=== PATIENT | female | born 1965 | race Caucasian/White ===

== ENCOUNTER 2016-12-01 11:40 | Emergency (ER) | payer OTHER ==
[2016-12-01 12:30] VITALS: RESP 18
[2016-12-01] MEDS ORDERED: SODIUM CHLORIDE 0.9% 1,000 ML IV STA ×2 (12:44)
[2016-12-01 13:09] LABS: Basophils # (A) 0.1 k/uL (0-0.2); Basophils % (A) 1 %; CH 30.2; CHCM 34.1; Eosinophils # (A) 0.2 k/uL (0-0.7); Eosinophils % (A) 3 %; HCT 44.2 % (34.0-46.0); HDW 2.54; HGB 14.9 gm/dL (11.4-16.0); Luc # (Auto) 0.09; Luc % (Auto) 1; Lymphocytes # (A) 1.6 k/uL (1.0-4.8); Lymphocytes % (A) 26 %; MCH 29.9 pg (25.0-35.0); MCHC 33.7 g/dL (31.0-37.0); MCV 88.8 fL (80.0-100.0); Mean Platelet Volume 8.1; Monocytes # (A) 0.2 k/uL (0-1.0); Monocytes % (A) 4 %; Neutrophils # (A) 4.1 k/uL (1.3-7.7); Neutrophils % (A) 65 %; RBC 4.98 m/uL (3.80-5.40); RDW 13.1 % (11.5-15.5); WBC 6.2 k/uL (3.8-10.6); WBC (Perox) 6.09
[2016-12-01 13:22] LABS: ALT 50 U/L (9-52); AST 26 U/L (14-36); Alkaline Phosphatase 117 U/L (38-126); Amylase 69 U/L (30-110); Anion Gap 8 mmol/L; Blood Urea Nitrogen 11 mg/dL (7-17); Calcium 8.9 mg/dL (8.4-10.2); Carbon Dioxide 27 mmol/L (22-30); Chloride 104 mmol/L (98-107); Glucose 91 mg/dL (74-99); Non-African American GFR(MDRD) >60 (>60 ml/min/1.73 sqM); Sodium 139 mmol/L (137-145); Total Bilirubin 0.6 mg/dL (0.2-1.3); Total Protein 7.9 g/dL (6.3-8.2)
--- NOTE | 2016-12-01 13:39 | ED ---
General Adult HPI - General Chief complaint: Abdominal Pain Stated complaint: ABDOMINAL PAIN X 3 DAYS Time Seen by Provider: 12/01/16 12:31 Source: patient, RN notes reviewed Mode of arrival: ambulatory Limitations: no limitations - History of Present Illness Initial comments: Patient is a 51-year-old female who presents emergency room today with chief complaint abdominal pain 3 days. She does admit that she felt more distended. States the abdomen does feel better today but still having some crampy type sharp pain in the upper abdomen. She denies anything that makes it Better or worse. She states she's never had similar symptoms in the past. Patient denies any recent fever, chills, shortness of breath, chest pain, back pain, abdominal pain, nausea or vomiting, numbness or tingling, dysuria or hematuria, constipation or diarrhea, headaches or visual changes, or any other complaints. - Related Data Home Medications Medication Instructions Recorded Confirmed Cetirizine HCl [Zyrtec] 10 mg PO DAILY PRN 10/06/15 12/01/16 Omeprazole [PriLOSEC] 20 mg PO DAILY PRN 12/01/16 12/01/16 Allergies Allergy/AdvReac Type Severity Reaction Status Date / Time shellfish derived [Crab] Allergy Severe Anaphylaxis Verified 12/01/16 13:19 Sulfa (Sulfonamide Allergy Unknown Rash/Hives Verified 12/01/16 13:19 Antibiotics) Review of Systems ROS Statement: Those systems with pertinent positive or pertinent negative responses have been documented in the HPI. ROS Other: All systems not noted in ROS Statement are negative. 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 HYPOGLYCEMIA, HX OF I.T.P., VERTIGO, ALLERGIES History of Any Multi-Drug Resistant Organisms: None Reported Past Surgical History: Hysterectomy, Uterine Ablation Additional Past Surgical History / Comment(s): OVARIAN CYSTS REMOVED Past Anesthesia/Blood Transfusion Reactions: Motion Sickness, Postoperative Nausea & Vomiting (PONV) Past Psychological History: No Psychological Hx Reported Smoking Status: Former smoker Past Alcohol Use History: Occasional Past Drug Use History: None Reported General Exam - General Exam Comments Initial Comments: General: The patient is awake and alert, in no distress, and does not appear acutely ill. Eye: Pupils are equal, round and reactive to light, extra-ocular movements are intact. No nystagmus. There is normal conjunctiva bilaterally. No signs of icterus. Ears, nose, mouth and throat: There are moist mucous membranes and no oral lesions. Neck: The neck is supple, there is no tenderness or JVD. Cardiovascular: There is a regular rate and rhythm. No murmur, rub or gallop is appreciated. Respiratory: Lungs are clear to auscultation, respirations are non-labored, breath sounds are equal. No wheezes, stridor, rales, or rhonchi. Gastrointestinal: Normal appearance and. Normal bowel sounds. Abdomen soft on palpation. Patient does have mild tenderness epigastric. No rebound tenderness. No guarding. Musculoskeletal: Normal ROM, no tenderness. Strength 5/5. Sensation intact. Pulses equal bilaterally 2+. Neurological: A&O x 3. CN II-XII intact, There are no obvious motor or sensory deficits. Coordination appears grossly intact. Speech is normal. Skin: Skin is warm and dry and no rashes or lesions are noted. Psychiatric: Cooperative, appropriate mood & affect, normal judgment. Limitations: no limitations Course Vital Signs 12/01/16 12:26 Temperature 97.9 F Pulse Rate 73 Respiratory 18 Rate Blood Pressure 143/75 O2 Sat by Pulse 99 Oximetry Medical Decision Making - Medical Decision Making Patient's labs been reviewed and are unremarkable. Patient's ultrasound does show possible fatty liver. No evidence for acute cholecystitis. No cholelithiasis. Results were discussed with the patient. Patient is advised follow-up the family doctor. Patient unable to provide urine sample here in the emergency room but she denies any urinary symptoms. Patient will be discharged home advised to follow-up the family doctor the next 2 days. Advised to return if any symptoms increase or worsen or for any other concerns. - Lab Data Result diagrams: 12/01/16 12:45 12/01/16 12:45 Lab Results 12/01/16 12/01/16 Range/Units 12:45 12:45 WBC 6.2 (3.8-10.6) k/uL RBC 4.98 (3.80-5.40) m/uL Hgb 14.9 (11.4-16.0) gm/dL Hct 44.2 (34.0-46.0) % MCV 88.8 (80.0-100.0) fL MCH 29.9 (25.0-35.0) pg MCHC 33.7 (31.0-37.0) g/dL RDW 13.1 (11.5-15.5) % Plt Count 162 (150-450) k/uL Neutrophils % 65 % Lymphocytes % 26 % Monocytes % 4 % Eosinophils % 3 % Basophils % 1 % Neutrophils # 4.1 (1.3-7.7) k/uL Lymphocytes # 1.6 (1.0-4.8) k/uL Monocytes # 0.2 (0-1.0) k/uL Eosinophils # 0.2 (0-0.7) k/uL Basophils # 0.1 (0-0.2) k/uL Sodium 139 (137-145) mmol/L Potassium 4.0 (3.5-5.1) mmol/L Chloride 104 (98-107) mmol/L Carbon Dioxide 27 (22-30) mmol/L Anion Gap 8 mmol/L BUN 11 (7-17) mg/dL Creatinine 0.67 (0.52-1.04) mg/dL Est GFR (MDRD) Af Amer >60 (>60 ml/min/1.73 sqM) Est GFR (MDRD) Non-Af >60 (>60 ml/min/1.73 sqM) Glucose 91 (74-99) mg/dL Calcium 8.9 (8.4-10.2) mg/dL Total Bilirubin 0.6 (0.2-1.3) mg/dL AST 26 (14-36) U/L ALT 50 (9-52) U/L Alkaline Phosphatase 117 (38-126) U/L Total Protein 7.9 (6.3-8.2) g/dL Albumin 4.5 (3.5-5.0) g/dL Amylase 69 (30-110) U/L Lipase 87 (23-300) U/L Disposition Clinical Impression: Abdominal pain Disposition: HOME SELF-CARE Condition: Good Instructions: Abdominal Pain (ED) Additional Instructions: Please use medication as discussed. Please follow-up with family doctor in the next 2 days of symptoms have not improved. Please return to emergency room if the symptoms increase or worsen or for any other concerns. Time of Disposition: 14:36
--- NOTE | 2016-12-01 13:53 | XR ---
EXAMINATION TYPE: XR KUB DATE OF EXAM: 12/01/2016 1:46 PM CLINICAL HISTORY: Abdominal pain for 3 days. TECHNIQUE: 2 upright KUB images of the abdomen are obtained COMPARISON: None. FINDINGS: Scattered gas is seen in non-distended stomach and small bowel loops. Gas and fecal mater ial is seen in non-distended colon. There is 3 mm calculus at L3 vertebral body level in the mid abdo men. Lung bases are clear. Visualized osseous structures are intact. Scattered right-sided pelvic phl eboliths are seen. IMPRESSION: Overall nonobstructive bowel gas pattern. There is 3 mm left-sided renal calculus noted.
--- NOTE | 2016-12-01 14:23 | US ---
EXAMINATION TYPE: US abdomen limited DATE OF EXAM: 12/01/2016 2:11 PM COMPARISON: CTA chest March 15, 2015. Complete abdominal ultrasound June 28, 2013 CLINICAL HISTORY: Pain. Abdomen pain and distention x 4 days EXAM MEASUREMENTS: Liver Length: 17.6 cm Gallbladder Wall: 0.3 cm CBD: 0.5 cm Right Kidney: 11.8 x 4.4 x 5.4 cm Pancreas: visualized portions wnl, tail obscured by overlying midline bowel gas Liver: measures in upper limits of normal at 17.6cm, heterogeneous echotexture Gallbladder: wnl Evidence for sonographic Bean's sign: yes CBD: wnl Right Kidney: slightly dilated renal pelvis No gross hydronephrosis on limited images of right kidney. IMPRESSION: Suboptimal study without gallstones or ultrasound evidence for acute cholecystitis. He terogeneity of liver is likely on basis of diffuse fatty infiltration.
[2016-12-01 14:54] LABS: Appearance,Urine Cloudy (Clear); Bacteria,Urine Occasional /hpf; Bilirubin,Urine Negative (Negative); Glucose,Urine (UA) Negative (Negative); Ketones,Urine Negative (Negative); Leukocyte Esterase,Urine Negative (Negative); Nitrite,Urine Negative (Negative); PH, Urine 6.5 (5.0-8.0); Particle Count 2353; Protein,Urine Negative (Negative); RBC,Urine <1 /hpf (0-5); Specific Gravity,Urine 1.006 (1.001-1.035); Squamous Epithelial Cell,Urine 3 /hpf (0-4); UA Billing (MACRO vs. MICRO) MICRO; Urobilinogen,Urine <2.0 mg/dL (<2.0); WBC,Urine <1 /hpf (0-5)
[2016-12-01 15:09] VITALS: BP 124/59; PULSE 64; TEMP 97.6
== END 2016-12-01 15:08 | disposition home or self-care (01) ==
LOC: EC 11:40
DX: R10.10 Upper abdominal pain, unspecified (principal); Z87.891 Personal history of nicotine dependence; Z88.2 Allergy status to sulfonamides; Z91.013 Allergy to seafood
CPT/HCPCS: 36415; 74000; 76705; 80053; 81001; 82150; 83690; 85025; 96360; 96361; 99284

== ENCOUNTER → 2017-11-23 | Outpatient (CLI) | payer OTHER ==
[2017-11-23 15:32] LABS: Basophils % (A) 0 %; Eosinophils # (A) 0.1 k/uL (0-0.7); Eosinophils % (A) 2 %; HCT 40.2 % (34.0-46.0); HGB 13.7 gm/dL (11.4-16.0); Lymphocytes # (A) 2.1 k/uL (1.0-4.8); Lymphocytes % (A) 30 %; MCH 29.2 pg (25.0-35.0); MCHC 34.1 g/dL (31.0-37.0); MCV 85.6 fL (80.0-100.0); Mean Platelet Volume 8.6; Monocytes # (A) 0.3 k/uL (0-1.0); Monocytes % (A) 5 %; Neutrophils # (A) 4.2 k/uL (1.3-7.7); Neutrophils % (A) 61 %; Platelet Count 163 k/uL (150-450); RDW 12.9 % (11.5-15.5); WBC 6.9 k/uL (3.8-10.6)
[2017-11-23 15:39] LABS: Anion Gap 12 mmol/L; Blood Urea Nitrogen 12 mg/dL (7-17); Calcium 8.9 mg/dL (8.4-10.2); Carbon Dioxide 24 mmol/L (22-30); Chloride 105 mmol/L (98-107); Glucose 96 mg/dL (74-99); Potassium 4.1 mmol/L (3.5-5.1); Sodium 141 mmol/L (137-145)
== END | disposition home or self-care (01) ==
LOC: LABPAT 14:54
PROVIDERS: ATTEND Obstetrics & Gynecology
DX: Z01.818 Encounter for other preprocedural examination (principal); Z01.812 Encounter for preprocedural laboratory examination
CPT/HCPCS: 80048; 85025; 93005

== ENCOUNTER 2017-11-30 05:51 | Observation (INO) | payer OTHER ==
[2017-11-26 08:36] VITALS: BMI 29.0
--- NOTE | 2017-11-27 15:11 | P.HPOB ---
History of Present Illness H&P Date: 11/27/17 Chief Complaint: Vaginal prolapse Dorota is a 52-year-old female who underwent a hysterectomy 2013 and now has a vaginal prolapse. She notes that it is painful to her and that it is very comfortable when she sits down as it extends out to the end of the vagina. She is no longer sexually active and would prefer to stay in town for repair. We did discuss sending her to your pattern cleaner but she would prefer again to have it done in town. Risks/benefits/alternatives were discussed with the patient in detail and all questions are answered for her prior to proceeding to the operative room. She is scheduled for an anterior and posterior repair for same. 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 HYPOGLYCEMIA, VERTIGO @times History of Any Multi-Drug Resistant Organisms: None Reported Past Surgical History: Hysterectomy, Uterine Ablation Additional Past Surgical History / Comment(s): OVARIAN CYSTS REMOVED Past Anesthesia/Blood Transfusion Reactions: Motion Sickness, Postoperative Nausea & Vomiting (PONV) Smoking Status: Former smoker - Past Family History Mother Family Medical History: No Reported History Medications and Allergies Home Medications Medication Instructions Recorded Confirmed Type Cetirizine HCl [Zyrtec] 10 mg PO DAILY PRN 10/06/15 11/26/17 History Omeprazole [PriLOSEC] 20 mg PO DAILY PRN 12/01/16 11/26/17 History Ibuprofen [Advil] 200 - 400 mg PO Q6HR PRN 11/26/17 11/26/17 History Allergies Allergy/AdvReac Type Severity Reaction Status Date / Time shellfish derived [Crab] Allergy Severe Anaphylaxis Verified 11/25/17 18:05 Sulfa (Sulfonamide Allergy Unknown Rash/Hives Verified 11/25/17 18:05 Antibiotics) Exam Osteopathic Statement: *. No significant issues noted on an osteopathic structural exam other than those noted in the History and Physical/Consult. - OBG Physical Exam Breast: both: normal (no masses) Abdomen: bowel sounds normal, no diffuse tenderness, no bruit present, no guarding noted, no hepatomegaly, no splenomegaly, no mass Vulva: both: normal Vagina: normal moisture, no discharge, rectocele (Grade 2 rectocele), cystocele (Grade 3 cystocele) Cervix: absent Uterus: absent Adnexa: both: normal Anus/Rectum: normal perianal skin, no rectal mass, no hemorrhoids, heme negative
[~2017-11-30 05:51] MED LIST: DEXAMETHASONE SOD PHOSPHATE 10 MG/ML 1 ML VIAL IV ONE; LIDOCAINE 1% 20 ML VIAL (10MG/ML) FOR IV START INTRADERMA PRN; MIDAZOLAM 2 MG/2 ML VIAL IV PRN; ONDANSETRON ODT 4 MG TAB PO ONE; SCOPOLAMINE 1.5MG/72HR PATCH TRANSDERM ONE; ceFAZolin IN SWFI 2 GM/20 ML SYRINGE IVP ONE; fentaNYL (PF) 50 MCG/ML 2 ML AMP IV PRN
[2017-11-30] MEDS: LACTATED RINGERS 1,000 ML IV SCH (06:50)
[2017-11-30 06:56] LABS: Glucose,Whole Blood 93 mg/dL (75-99)
[2017-11-30] MEDS ORDERED: fentaNYL (PF) 50 MCG/ML 2 ML AMP ONE (07:36)
[2017-11-30] MEDS ORDERED: MIDAZOLAM 2 MG/2 ML VIAL ONE (07:36)
[2017-11-30] MEDS ORDERED: SUCCINYLCHOLINE CHLORIDE 100 MG/5 ML SYR IV ONE (07:36)
[2017-11-30] MEDS ORDERED: LIDOCAINE 1% INJ 10MG/ML (20 ML MDV) ONE (07:36)
[2017-11-30] MEDS ORDERED: PROPOFOL 10 MG/ML 20 ML VIAL IV ONE (07:36)
[2017-11-30] MEDS ORDERED: EPINEPHrine 1 MG in SODIUM CHLORIDE 0.9% 150 ML IV ONE (07:54)
[2017-11-30] MEDS ORDERED: diphenhydrAMINE 50 MG/ML 1 ML VIAL IVP PRN (08:33)
[2017-11-30] MEDS ORDERED: ONDANSETRON 4 MG/2 ML VIAL IVP PRN (08:33)
[2017-11-30] MEDS ORDERED: Acetaminophen-Codeine 300-30mg TAB PO PRN (08:33)
[2017-11-30] MEDS ORDERED: BACITRACIN 500 UNIT/GM OINT 28.4 GM TUBE TOPICAL ONE (08:35)
--- NOTE | 2017-11-30 08:39 | P.OP ---
Date of Procedure: 11/30/17 Preoperative Diagnosis: Vaginal prolapse Postoperative Diagnosis: Same Procedure(s) Performed: Anterior and posterior colporrhaphy Anesthesia: MORELIA Surgeon: Piotr Terry Medical Reviewer #1: Kindra Swan Estimated Blood Loss (ml): 75 IV fluids (ml): 500 Urine output (ml): 100 Pathology: other (Vaginal mucosa) Condition: stable Disposition: floor Operative Findings: Grade 3 cystocele grade 2 rectocele with enterocele Description of Procedure: Patient was taken to the operating suite where a general anesthetic was found be adequate. She was prepped and draped in normal sterile fashion and placed in the dorsal lithotomy position. Initially a weighted speculum was inserted into the vagina and the apex of the cystocele was identified and grasped between 2 Allis clamps. A dilute epinephrine solution was then injected submucosally to assist in hydrodissection and control bleeding. Knife was then used to incise the uterus in a horizontal line and then using Allis clamps to delineate the boundaries of the cystocele and metastases scissors to undermine the tissue and incise the cystocele in a vertical fashion cystocele was dissected all the way to approximately 1 cm below the urethra. One and sharp dissection of both the right and left-hand sides of the cystocele tissue were then done pushing it as far laterally as possible and then 4 Tara plication sutures were placed in interrupted fashion. Excess mucosa was then trimmed and the incision was closed with 0 Vicryl suture in a running locking fashion. Once this was accomplished speculum was removed and posterior vaginal wall was identified grasped between 2 Allis clamps and again the dilute epinephrine solution was injected in this tissue. Knife was then used to incise this tissue and then in a similar fashion Metzenbaum scissors was used to undermine and incise the rectocele tissues and enterocele tissue all the way to the apex of the rectocele. Once this was accomplished again with boundaries delineated with Allis clamps sharp and blunt dissection of both sides of the rectocele/ enterocele were done and Tara plication sutures were placed to reapproximate the tissues. Excess vaginal close again was trimmed and 0 Vicryl suture in a running locking fashion again was used to reapproximate the rectocele. The end of the rectocele was repaired similar to an episiotomy. Finally to external 3- 0 Vicryl sutures were used to reapproximate the skin in an area that had a small gap. Once this was accomplished vaginal packing was placed as was a Petersen catheter noting clear yellow urine. Instruments were then removed sponge , lap, needle counts were correct 2. Patient was then taken to the recovery room in stable and satisfactory condition.
[2017-11-30] MEDS ORDERED: LACTATED RINGERS 1,000 ML IV ONE (09:00)
[2017-11-30] MEDS: KETOROLAC 30 MG/ML 1 ML VIAL IVP PRN ×3 (09:03→22:20)
[2017-11-30] MEDS: MORPHINE SULFATE 2 MG/ML SYRINGE IV PRN ×2 (09:04→09:09)
[2017-11-30] MEDS: Acetaminophen-Codeine 300-30mg TAB PO PRN ×2 (12:27→18:45)
[2017-12-01] MEDS: Acetaminophen-Codeine 300-30mg TAB PO PRN ×2 (01:17→07:19)
[2017-12-01 01:35] VITALS: RESP 16
[2017-12-01] MEDS: KETOROLAC 30 MG/ML 1 ML VIAL IVP PRN (04:19)
[2017-12-01] MEDS: LACTATED RINGERS 1,000 ML IV SCH (04:19)
[2017-12-01 06:45] LABS: Basophils % (A) 1 %; Eosinophils # (A) 0.1 k/uL (0-0.7); Eosinophils % (A) 1 %; HCT 33.8 % (34.0-46.0); HGB 11.4 gm/dL (11.4-16.0); Lymphocytes # (A) 2.2 k/uL (1.0-4.8); Lymphocytes % (A) 36 %; MCH 29.3 pg (25.0-35.0); MCHC 33.7 g/dL (31.0-37.0); MCV 86.7 fL (80.0-100.0); Mean Platelet Volume 8.2; Monocytes # (A) 0.3 k/uL (0-1.0); Monocytes % (A) 5 %; Neutrophils # (A) 3.3 k/uL (1.3-7.7); Neutrophils % (A) 55 %; Platelet Count 142 k/uL (150-450); RBC 3.89 m/uL (3.80-5.40)
[2017-12-01 08:44] VITALS: BP 98/61; PULSE 64; TEMP 97.6
--- NOTE | 2017-12-01 09:07 | P.DS ---
Providers Date of admission: 11/30/17 23:38 Expected date of discharge: 12/01/17 Attending physician: Piotr Terry Primary care physician: Stated None Hospital Course: Dorota is doing very well postop day 1. She is involuting, voiding, and she is tolerating her diet. She voices no complaints. Vital signs stable and afebrile. Heart regular, lungs clear, extremities without pain. Abdomen soft and nontender with positive bowel sounds. Vaginal packing removed earlier this morning and had minimal blood. Petersen cath was also removed and a bladder scan reveals complete emptying. Assessment postop day 1. Plan discharged home follow up with me in 1 week. Discharge instructions were thoroughly reviewed with the patient and all questions are answered for her prior to her discharge. A three-day prescription for Tylenol 3 and Motrin have been provided. Patient Condition at Discharge: Good Plan - Discharge Summary Discharge Rx Participant: Yes New Discharge Prescriptions: New Acetaminophen-Codeine 300-30mg [Tylenol #3] 1 tab PO Q4H PRN #30 tablet PRN Reason: Pain Ibuprofen [Motrin] 600 mg PO Q6HR PRN #30 tab PRN Reason: Pain No Action Cetirizine HCl [Zyrtec] 10 mg PO DAILY PRN PRN Reason: Allergy Symptoms Omeprazole [PriLOSEC] 20 mg PO DAILY PRN PRN Reason: STOMACH Ibuprofen [Advil] 200 - 400 mg PO Q6HR PRN PRN Reason: Pain Discharge Medication List Cetirizine HCl [Zyrtec] 10 mg PO DAILY PRN 10/06/15 [History] Omeprazole [PriLOSEC] 20 mg PO DAILY PRN 12/01/16 [History] Ibuprofen [Advil] 200 - 400 mg PO Q6HR PRN 11/26/17 [History] Acetaminophen-Codeine 300-30mg [Tylenol #3] 1 tab PO Q4H PRN #30 tablet [Rx] Ibuprofen [Motrin] 600 mg PO Q6HR PRN #30 tab 12/01/17 [Rx] Follow up Appointment(s)/Referral(s): Piotr Terry DO [Doctor of Osteopathic Medicine] - 1 Week Patient Instructions/Handouts: *Surgery [facility] - Scopalamine Patch Instructions Activity/Diet/Wound Care/Special Instructions: no heavy lifting, limit stairs and driving and pelvic rest. If any high temperatures, heavy bleeding, or severe pain call my office Discharge Disposition: HOME SELF-CARE
== END 2017-12-01 10:15 | disposition home or self-care (01) ==
LOC: ORWHC2ENDO 05:51 → EDSTATUS 07:45 → 6PED 08:40 → ORWHC2ENDO 23:38
PROVIDERS: ADMIT Obstetrics & Gynecology; ATTEND Obstetrics & Gynecology
DX: N99.3 Prolapse of vaginal vault after hysterectomy (principal); D69.3 Immune thrombocytopenic purpura; M79.7 Fibromyalgia; I49.9 Cardiac arrhythmia, unspecified; J45.909 Unspecified asthma, uncomplicated; H91.90 Unspecified hearing loss, unspecified ear; M19.90 Unspecified osteoarthritis, unspecified site; K58.9 Irritable bowel syndrome, unspecified; G43.909 Migraine, unspecified, not intractable, without status migrainosus; Z79.899 Other long term (current) drug therapy; Z88.2 Allergy status to sulfonamides; Z91.013 Allergy to seafood; Z87.891 Personal history of nicotine dependence
CPT/HCPCS: 86900; 86901; 85025; 86850; 88302; 57265; G0378 ×2; J2250; J0171; J1200; J1100; J2001; J3010; J1885 ×2; J2270; J0330; J2704

== ENCOUNTER → 2018-04-21 | Outpatient (CLI) | payer OTHER ==
--- NOTE | 2018-04-21 08:22 | MR ---
EXAMINATION TYPE: MR brain wo/w con DATE OF EXAM: 04/21/2018 COMPARISON: Prior MRI brain September 07, 2014 and older MRI studies HISTORY: Migraine headaches with aura and vision changes. Migraine headaches with bilateral hearing l oss per patient. TECHNIQUE: Multiplanar, multisequence images of the brain and brainstem is performed without and with IV contras t, utilizing 8 mL intravenous Gadavist . FINDINGS: Diffusion weighted images demonstrate no evidence of a recent infarct or other diffusion ab normality. There is no extra-axial fluid collection or significant white matter signal abnormality. The ventricular system and cisternal spaces are normal in size and appearance. The brain volume is age appropriate. Midline structures demonstrate normal morphology. The craniocervical junction appears within normal limits. Post contrast images demonstrate no abnormal enhancement. The dural venous sinuses appear pa tent. The visualized sinuses are clear and the globes are intact. Nasal septum remains deviated to ri ght of midline. No suspicious new fluid signal is seen at level of mastoid air cells bilaterally. IMPRESSION: No new or acute finding identified to account for patient's symptoms. No significant villarreal ge from most recent MRI.
== END | disposition home or self-care (01) ==
LOC: RADMRIMAIN 06:51
PROVIDERS: ATTEND Family Medicine
DX: G43.119 Migraine with aura, intractable, without status migrainosus (principal); H53.9 Unspecified visual disturbance
CPT/HCPCS: 70553; A9581

== ENCOUNTER 2019-04-09 15:03 | Emergency (ER) | payer OTHER ==
[2019-04-09 15:10] VITALS: RESP 18
[2019-04-09] MEDS ORDERED: KETOROLAC 30 MG/ML 1 ML VIAL IVP STA (16:33)
--- NOTE | 2019-04-09 16:39 | ED ---
Extremity Problem HPI - General Chief complaint: Extremity Problem,Nontraumatic Stated complaint: Arm and neck pain, hand turned blue Time Seen by Provider: 04/09/19 16:10 Source: patient, RN notes reviewed Mode of arrival: ambulatory Limitations: no limitations - History of Present Illness Initial comments: This is a 53-year-old female with a history of intermittent ITP also history of asthma was not taking her medication she is a nonsmoker and will also stated that she may have been told she had renal in the past who presents with complaints of left arm pain and some bluish discoloration to the left hand. This was while in after she was working on a computer earlier. She uses her right hand were working on a computer she states that her left she also complains of some neck pain on the left side. No fevers chills nausea vomiting sweats no focal weakness. She states the left upper 70 really dusky is improved now no other place, no trauma. MD Complaint: extremity pain, other - Related Data Home Medications Medication Instructions Recorded Confirmed Cetirizine HCl [Zyrtec] 10 mg PO DAILY PRN 10/06/15 04/09/19 Albuterol Inhaler [Ventolin Hfa 1 - 2 puff INHALATION RT-Q6H PRN 04/09/19 04/09/19 Inhaler] Previous Rx's Medication Instructions Recorded Cyclobenzaprine [Flexeril] 10 mg PO TID #14 tab 04/09/19 Ibuprofen 800 mg PO Q6HR PRN #20 tablet 04/09/19 Allergies Allergy/AdvReac Type Severity Reaction Status Date / Time shellfish derived [Crab] Allergy Severe Anaphylaxis Verified 04/09/19 16:05 Sulfa (Sulfonamide Allergy Unknown Rash/Hives Verified 04/09/19 16:05 Antibiotics) egg AdvReac Rash/Hives Verified 04/09/19 16:05 Review of Systems ROS Statement: Those systems with pertinent positive or pertinent negative responses have been documented in the HPI. ROS Other: All systems not noted in ROS Statement are negative. 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 HYPOGLYCEMIA, HX OF I.T.P., VERTIGO, ALLERGIES History of Any Multi-Drug Resistant Organisms: None Reported Past Surgical History: Hysterectomy, Uterine Ablation Additional Past Surgical History / Comment(s): OVARIAN CYSTS REMOVED Past Anesthesia/Blood Transfusion Reactions: Motion Sickness, Postoperative Nausea & Vomiting (PONV) Past Psychological History: No Psychological Hx Reported Smoking Status: Former smoker Past Alcohol Use History: Occasional Past Drug Use History: None Reported - Past Family History Mother Family Medical History: No Reported History General Exam - General Exam Comments Initial Comments: This is a well-developed well-nourished alert awake oriented history female Limitations: no limitations General appearance: alert, anxious Head exam: Present: atraumatic, normocephalic, normal inspection Eye exam: Present: normal appearance, PERRL, EOMI. Absent: scleral icterus, conjunctival injection, periorbital swelling ENT exam: Present: normal exam, mucous membranes moist Neck exam: Present: normal inspection, tenderness (Tennis palpation of left posterior lateral neck musculature over the trapezius muscle), full ROM. Absent: meningismus, lymphadenopathy Respiratory exam: Present: normal lung sounds bilaterally. Absent: respiratory distress, wheezes, rales, rhonchi, stridor Cardiovascular Exam: Present: regular rate, normal rhythm, normal heart sounds. Absent: systolic murmur, diastolic murmur, rubs, gallop, clicks GI/Abdominal exam: Present: soft, normal bowel sounds. Absent: distended, tenderness, guarding, rebound, rigid, bruit, pulsatile mass Extremities exam: Present: full ROM, normal capillary refill, other (Some mild evidence of duskiness to the palmar aspect and phalanges the left hand capillary refill all or is less than 2 seconds pulses are equal with respect to the radial and ulnar pulses. She also is tenderness palpation of the musculature of the left forearm no step-off no crepitation full range of motion noted.). A bsent: tenderness, pedal edema, joint swelling, calf tenderness Back exam: Present: normal inspection Neurological exam: Present: alert, oriented X3, CN II-XII intact Psychiatric exam: Present: normal affect, normal mood Skin exam: Present: warm, dry, intact, other (Duskiness noted to the left palmar aspect/thenar eminence of the hand. Also to the nailbeds.). Absent: rash Course Vital Signs 04/09/19 04/09/19 15:07 16:54 Temperature 97.5 F L Pulse Rate 79 63 Respiratory 18 18 Rate Blood Pressure 124/81 118/70 O2 Sat by Pulse 99 95 Oximetry Medical Decision Making - Medical Decision Making Patient has no more symptoms at this time she has gotten better she states the p shalom is gone away since the Toradol shot. She will be discharged the presentation is likely consistent with a radicular etiology With vasospasm. Patient will be discharged and follow-up with her doctor - Lab Data Result diagrams: 04/09/19 15:23 04/09/19 15:23 Lab Results 04/09/19 04/09/19 04/09/19 Range/Units 15:23 15:23 15:23 WBC 6.3 (3.8-10.6) k/uL RBC 4.79 (3.80-5.40) m/uL Hgb 14.0 (11.4-16.0) gm/dL Hct 42.0 (34.0-46.0) % MCV 87.7 (80.0-100.0) fL MCH 29.3 (25.0-35.0) pg MCHC 33.4 (31.0-37.0) g/dL RDW 14.4 (11.5-15.5) % Plt Count 177 (150-450) k/uL Neutrophils % 55 % Lymphocytes % 34 % Monocytes % 5 % Eosinophils % 3 % Basophils % 1 % Neutrophils # 3.4 (1.3-7.7) k/uL Lymphocytes # 2.2 (1.0-4.8) k/uL Monocytes # 0.3 (0-1.0) k/uL Eosinophils # 0.2 (0-0.7) k/uL Basophils # 0.1 (0-0.2) k/uL PT 9.4 (9.0-12.0) sec INR 0.9 (<1.2) APTT 24.4 (22.0-30.0) sec D-Dimer 0.20 (<0.60) mg/L FEU Sodium 140 (137-145) mmol/L Potassium 4.3 (3.5-5.1) mmol/L Chloride 107 (98-107) mmol/L Carbon Dioxide 24 (22-30) mmol/L Anion Gap 9 mmol/L BUN 17 (7-17) mg/dL Creatinine 0.96 (0.52-1.04) mg/dL Est GFR (CKD-EPI)AfAm 79 (>60 ml/min/1.73 sqM) Est GFR (CKD-EPI)NonAf 69 (>60 ml/min/1.73 sqM) Glucose 95 (74-99) mg/dL Calcium 9.0 (8.4-10.2) mg/dL Magnesium 2.1 (1.6-2.3) mg/dL Total Bilirubin 0.3 (0.2-1.3) mg/dL AST 40 H (14-36) U/L ALT 51 (9-52) U/L Alkaline Phosphatase 95 (38-126) U/L Creatine Kinase 60 (30-135) U/L Total Protein 7.3 (6.3-8.2) g/dL Albumin 4.3 (3.5-5.0) g/dL - EKG Data -: EKG Interpreted by Me EKG shows normal: sinus rhythm (Sinus rhythm a 68. Interval 146 QRS 80 QT since QTC/433 poor R-wave progression.) - Radiology Data Radiology results: report reviewed (I did review the imaging and reports no acute findings.), image reviewed Disposition Clinical Impression: Cervical radiculopathy, Myofascial pain, Peripheral artery vasospasm Disposition: HOME SELF-CARE Condition: Good Additional Instructions: Prescriptions are transmitted to [email or web address] Prescriptions: Cyclobenzaprine [Flexeril] 10 mg PO TID #14 tab Ibuprofen 800 mg PO Q6HR PRN #20 tablet PRN Reason: Pain Is patient prescribed a controlled substance at d/c from ED?: No Referrals: Merissa Huber DO [Primary Care Provider] - 1-2 days
[2019-04-09] MEDS ORDERED: FAMOTIDINE 20 MG/2 ML VIAL IV STA (16:48)
[2019-04-09] MEDS ORDERED: methylPREDNISolone SOD SUCCI 125 MG/2 ML VIAL IV STA (16:48)
[2019-04-09] MEDS ORDERED: diphenhydrAMINE 50 MG/ML 1 ML VIAL IVP STA (16:48)
[2019-04-09 17:00] LABS: Basophils # (A) 0.1 k/uL (0-0.2); Basophils % (A) 1 %; Eosinophils # (A) 0.2 k/uL (0-0.7); Eosinophils % (A) 3 %; Lymphocytes # (A) 2.2 k/uL (1.0-4.8); Lymphocytes % (A) 34 %; MCH 29.3 pg (25.0-35.0); MCHC 33.4 g/dL (31.0-37.0); MCV 87.7 fL (80.0-100.0); Mean Platelet Volume 8.2; Monocytes # (A) 0.3 k/uL (0-1.0); Monocytes % (A) 5 %; Neutrophils # (A) 3.4 k/uL (1.3-7.7); Neutrophils % (A) 55 %; Platelet Count 177 k/uL (150-450); RBC 4.79 m/uL (3.80-5.40); RDW 14.4 % (11.5-15.5); WBC 6.3 k/uL (3.8-10.6)
[2019-04-09 17:07] LABS: Albumin 4.3 g/dL (3.5-5.0); Magnesium 2.1 mg/dL (1.6-2.3); Potassium 4.3 mmol/L (3.5-5.1); Total Bilirubin 0.3 mg/dL (0.2-1.3); Total Protein 7.3 g/dL (6.3-8.2)
[2019-04-09 17:14] LABS: D-Dimer 0.2 mg/L FEU (<0.60); INR 0.9 (<1.2); Partial Thromboplastin Time 24.4 sec (22.0-30.0); Prothrombin Time 9.4 sec (9.0-12.0)
[2019-04-09 19:12] VITALS: BP 111/62; PULSE 66; TEMP 98.7
--- NOTE | 2019-04-09 19:20 | ED ---
Medical Decision Making - Lab Data Result diagrams: 04/09/19 15:23 04/09/19 15:23 Lab Results 04/09/19 04/09/19 04/09/19 Range/Units 15:23 15:23 15:23 WBC 6.3 (3.8-10.6) k/uL RBC 4.79 (3.80-5.40) m/uL Hgb 14.0 (11.4-16.0) gm/dL Hct 42.0 (34.0-46.0) % MCV 87.7 (80.0-100.0) fL MCH 29.3 (25.0-35.0) pg MCHC 33.4 (31.0-37.0) g/dL RDW 14.4 (11.5-15.5) % Plt Count 177 (150-450) k/uL Neutrophils % 55 % Lymphocytes % 34 % Monocytes % 5 % Eosinophils % 3 % Basophils % 1 % Neutrophils # 3.4 (1.3-7.7) k/uL Lymphocytes # 2.2 (1.0-4.8) k/uL Monocytes # 0.3 (0-1.0) k/uL Eosinophils # 0.2 (0-0.7) k/uL Basophils # 0.1 (0-0.2) k/uL PT 9.4 (9.0-12.0) sec INR 0.9 (<1.2) APTT 24.4 (22.0-30.0) sec D-Dimer 0.20 (<0.60) mg/L FEU Sodium 140 (137-145) mmol/L Potassium 4.3 (3.5-5.1) mmol/L Chloride 107 (98-107) mmol/L Carbon Dioxide 24 (22-30) mmol/L Anion Gap 9 mmol/L BUN 17 (7-17) mg/dL Creatinine 0.96 (0.52-1.04) mg/dL Est GFR (CKD-EPI)AfAm 79 (>60 ml/min/1.73 sqM) Est GFR (CKD-EPI)NonAf 69 (>60 ml/min/1.73 sqM) Glucose 95 (74-99) mg/dL Calcium 9.0 (8.4-10.2) mg/dL Magnesium 2.1 (1.6-2.3) mg/dL Total Bilirubin 0.3 (0.2-1.3) mg/dL AST 40 H (14-36) U/L ALT 51 (9-52) U/L Alkaline Phosphatase 95 (38-126) U/L Creatine Kinase 60 (30-135) U/L Total Protein 7.3 (6.3-8.2) g/dL Albumin 4.3 (3.5-5.0) g/dL Disposition Clinical Impression: Cervical radiculopathy, Myofascial pain, Peripheral artery vasospasm Disposition: HOME SELF-CARE Condition: Good Instructions (If sedation given, give patient instructions): Cervical Radiculopathy (ED), Neck Pain (ED) Additional Instructions: Prescriptions are transmitted to [facility] Prescriptions: Cyclobenzaprine [Flexeril] 10 mg PO TID #14 tab Ibuprofen 800 mg PO Q6HR PRN #20 tablet PRN Reason: Pain Is patient prescribed a controlled substance at d/c from ED?: No Referrals: Merissa Huber DO [Primary Care Provider] - 1-2 days
--- NOTE | 2019-04-09 21:51 | XR ---
EXAMINATION TYPE: XR chest 2V DATE OF EXAM: 04/09/2019 COMPARISON: Chest radiograph 09/25/2015 HISTORY: Cough TECHNIQUE: Frontal and lateral views of the chest are obtained. FINDINGS: There is no focal air space opacity, pleural effusion, or pneumothorax seen. The cardiac silhouette size is within normal limits. The osseous structures are intact. IMPRESSION: No acute cardiopulmonary process.
--- NOTE | 2019-04-09 21:51 | CT ---
EXAMINATION TYPE: CT angio upper extremity LT DATE OF EXAM: 04/09/2019 5:48 PM COMPARISON: None. HISTORY: Left forearm pain, left hand cyanotic. CT DLP: 1411.4 mGycm Automated exposure control for dose reduction was used. TECHNIQUE: Performed with IV Contrast, patient injected with 100 mL of Isovue 370. 3D and MIP reconstructed images are created on an independent workstation and reviewed. FINDINGS: The left subclavian, axillary, and brachial arteries are well-opacified. There is fusiform prominence of the distal brachial artery (series 401 images 64-75), abdominal clinical significance. The radial and ulnar arteries are well-opacified to the level of the mid forearm and become attenuated distally . No visualized soft tissue or calcified plaque throughout the imaged arterial system. No soft tissue abnormality. No osseous destructive lesion. IMPRESSION: Patent left subclavian through mid ulnar and radial arteries which become attenuated thereafter, like ly technique related and due to their small size.
== END 2019-04-09 19:24 | disposition home or self-care (01) ==
LOC: EC 15:03
DX: M54.12 Radiculopathy, cervical region (principal); M79.18 Myalgia, other site; I73.9 Peripheral vascular disease, unspecified; J45.909 Unspecified asthma, uncomplicated; Z88.2 Allergy status to sulfonamides; Z91.012 Allergy to eggs; Z91.013 Allergy to seafood; Z87.891 Personal history of nicotine dependence
CPT/HCPCS: 36415; 93005; 85379; 80053; 82550; 83735; 85025; 85610; 85730; 71046; 73206; 99284; 96374; 96375 ×3; J1200; J2930; J1885; Q9967

== ENCOUNTER → 2019-07-18 | Outpatient (CLI) | payer OTHER ==
[2019-07-19 14:00] LABS: C-ANCA <1:20 Titer (<1:20)
== END | disposition home or self-care (01) ==
LOC: LABWHC1 12:39
PROVIDERS: ATTEND Family Medicine
DX: M62.81 Muscle weakness (generalized) (principal)
CPT/HCPCS: 36415; 86162; 86255

== ENCOUNTER 2020-10-25 16:13 | Emergency (ER) | payer OTHER ==
[2020-10-25 16:59] VITALS: TEMP 98.3
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
[2020-10-25 18:51] VITALS: BP 101/62; PULSE 64; RESP 18
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
== END 2020-10-25 19:08 | disposition home or self-care (01) ==
LOC: EC 16:13
DX: S06.0X0A Concussion without loss of consciousness, initial encounter (principal); J45.909 Unspecified asthma, uncomplicated; M19.90 Unspecified osteoarthritis, unspecified site; G43.909 Migraine, unspecified, not intractable, without status migrainosus; M79.7 Fibromyalgia; Y04.0XXA Assault by unarmed brawl or fight, initial encounter
CPT/HCPCS: 70450; 72125; 99284

== ENCOUNTER → 2021-04-19 | Outpatient (CLI) | payer OTHER ==
--- NOTE | 2021-04-19 12:36 | P.STRESS ---
- Stress Test Note Stress Test Results/Findings: Exam Performed: stress test Exam Date: 04/19/21 Reason for Exam: Chest Pain Height: 5 ft 7 in Weight: 81.647 kg Protocol: Benji Stage: 4 Duration of Exercise: 10:15 Resting Heart Rate: 71 Resting Blood Pressure: 111/76 Maximum Achieved Heart Rate: 152 Maximum Achieved Blood Pressure: 146/78 85% PMHR: 142 100% PMHR: 167 METS: 11.9 Technologist Comment: Stress Test Results/Findings: Sinus mechanism Heart rate 71 beats a minute, blood pressure 111/76 mmHg Twelve-lead EKG shows sinus rhythm normal ST segments Patient exercised on a Benji protocol for 10 minutes 15 seconds She achieved a peak heart rate of 152 beats a minute. Normal blood pressure response to exercise No ECG evidence for ischemia No arrhythmias Impression normal stress test without any arrhythmias No ECG evidence of ischemia Good exercise capacity, normal heart rate and blood pressure response
== END | disposition home or self-care (01) ==
LOC: RADNMMAIN 08:54
PROVIDERS: ATTEND Family Medicine
DX: Z87.898 Personal history of other specified conditions (principal)
CPT/HCPCS: 93017

== ENCOUNTER → 2021-05-21 | Outpatient (CLI) | payer OTHER ==
--- NOTE | 2021-05-21 11:59 | XR ---
EXAMINATION TYPE: XR thoracic spine complete DATE OF EXAM: 05/21/2021 CLINICAL HISTORY: Mid back pain. TECHNIQUE: Frontal, lateral, and swimmer's view of thoracic spine are obtained. COMPARISON: Prior two-view spine x-ray 2014. FINDINGS: Thoracic spine show more prominent dextroconvex scoliotic curvature or positioning centered mid thoracic spine without evidence of acute fracture or dislocation. Vertebral body heights and di sc space heights remain stable and satisfactory. Mild multilevel anterior and lateral spurring is now present. Visualized ribs are intact bilaterally. IMPRESSION: As above.
== END | disposition home or self-care (01) ==
LOC: RADXRMAIN 11:30
PROVIDERS: ATTEND Family Medicine
DX: M54.6 Pain in thoracic spine (principal)
CPT/HCPCS: 72072

== ENCOUNTER 2021-06-29 12:08 | Emergency (ER) | payer OTHER ==
[2021-06-29] MEDS ORDERED: ACETAMINOPHEN TAB 500 MG TAB PO STA (13:55)
--- NOTE | 2021-06-29 14:51 | CT ---
EXAMINATION TYPE: CT brain cspine wo con DATE OF EXAM: 06/29/2021 COMPARISON: None HISTORY: Fall 3 foot, c/o dizziness CT DLP: 1578.9 mGycm Automated exposure control for dose reduction was used. Images of the brain and cervical spine obtained without contrast. Cervical vertebra have normal spacing and alignment. Posterior elements are intact. There is minor sp urring of the endplates at C5-6 and C6-7. Facet joints are intact. Prevertebral soft tissues are inta ct. Skull base is intact. There is normal aeration of the mastoid sinuses. Ventricles and sulci appear normal. There is no mass effect nor midline shift. There is no sign of in tracranial hemorrhage. Calvarium is intact.
--- NOTE | 2021-06-29 15:16 | XR ---
EXAMINATION TYPE: XR hand complete bilateral DATE OF EXAM: 06/29/2021 COMPARISON: NONE HISTORY: Fall. Pain. TECHNIQUE: 3 views each hand FINDINGS: Metacarpals are intact. I see no fracture nor dislocation. Joint spaces are fairly normal. The fingers are intact. There is some mild spurring at the DIP joint of the right index finger. Carpa l bones are intact. IMPRESSION: No fracture seen.
--- NOTE | 2021-06-29 15:19 | XR ---
EXAMINATION TYPE: XR wrist complete BILATERAL DATE OF EXAM: 06/29/2021 COMPARISON: NONE HISTORY: Fall. Pain. TECHNIQUE: 4 views each wrist FINDINGS: Carpal bones are intact. I see no fracture nor dislocation. Radiocarpal joint spaces are fa irly normal. IMPRESSION: Negative bilateral wrist exam. No fracture.
[2021-06-29] MEDS ORDERED: ACET/COD 300 MG/30 MG STARTER PACK 6 TAB BTL PO STA (16:02)
--- NOTE | 2021-06-29 16:07 | ED ---
Fall HPI - General Chief Complaint: Fall Stated Complaint: Fall, hand, head & leg injury Time Seen by Provider: 06/29/21 12:30 Source: patient Mode of arrival: ambulatory - History of Present Illness Initial Comments: 55-year-old female presents to the emergency department after a fall. She reports that she was attempting to hang [employer] lights yesterday when she accidentally fell over a set of stairs and onto grass. Her took off the railing in order to fix it however never did. She states that she did hit her head. No loss of consciousness. Has been having some mild neck pain. Patient not on any blood thinners. She fell from a height of approximately 3 feet. She landed on outstretched bilateral hands. She has had some numbness, decreased range of motion of the right thumb. There is overlying ecchymosis of the thenar eminence. She is right-hand dominant. Denies any elbow or shoulder pain. No thoracic or lumbar back pain. Denies headache, visual changes. No other alleviating, precipitating or modifying factors - Related Data Home Medications Medication Instructions Recorded Confirmed Acetaminophen Tab [Tylenol Tab] 1,000 mg PO Q6HR PRN 10/25/20 06/29/21 Albuterol Nebulized [Ventolin 2.5 mg INHALATION RT-Q6H PRN 06/29/21 06/29/21 Nebulized] Albuterol Sulfate [Proair Hfa] 2 puff INHALATION RT-Q6H PRN 06/29/21 06/29/21 Beclomethasone Dipropionate [Qvar 2 puff INHALATION RT-DAILY PRN 06/29/21 06/29/21 40 mcg Redihaler] Loratadine [Claritin] 10 mg PO DAILY 06/29/21 06/29/21 Montelukast [Singulair] 10 mg PO DAILY PRN 06/29/21 06/29/21 Omeprazole 40 mg PO DAILY 06/29/21 06/29/21 Allergies Allergy/AdvReac Type Severity Reaction Status Date / Time shellfish derived [Crab] Allergy Severe Anaphylaxis Verified 06/29/21 14:27 Sulfa (Sulfonamide Allergy Unknown Rash/Hives Verified 06/29/21 14:27 Antibiotics) egg AdvReac Rash/Hives Verified 06/29/21 14:27 Review of Systems ROS Statement: Those systems with pertinent positive or pertinent negative responses have been documented in the HPI. ROS Other: All systems not noted in ROS Statement are negative. 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 HYPOGLYCEMIA, HX OF I.T.P., VERTIGO, ALLERGIES History of Any Multi-Drug Resistant Organisms: None Reported Past Surgical History: Hysterectomy, Uterine Ablation Additional Past Surgical History / Comment(s): OVARIAN CYSTS REMOVED Past Anesthesia/Blood Transfusion Reactions: Motion Sickness, Postoperative Nausea & Vomiting (PONV) Past Psychological History: No Psychological Hx Reported Smoking Status: Never smoker Past Alcohol Use History: Occasional Past Drug Use History: Marijuana - Past Family History Mother Family Medical History: No Reported History General Exam Limitations: no limitations General appearance: alert, in no apparent distress Head exam: Present: atraumatic, normocephalic, normal inspection Eye exam: Present: normal appearance, PERRL, EOMI. Absent: scleral icterus, conjunctival injection, periorbital swelling ENT exam: Present: normal exam, mucous membranes moist Neck exam: Present: normal inspection. Absent: tenderness, meningismus, lymphadenopathy Respiratory exam: Present: normal lung sounds bilaterally. Absent: respiratory distress, wheezes, rales, rhonchi, stridor Cardiovascular Exam: Present: regular rate, normal rhythm, normal heart sounds. Absent: systolic murmur, diastolic murmur, rubs, gallop, clicks GI/Abdominal exam: Present: soft, normal bowel sounds. Absent: distended, tenderness, guarding, rebound, rigid Extremities exam: Present: tenderness (thenar eminence right palm with overlying ecchymosis. Compartments soft. 2+ radial and ulnar pulses bilaterally. No scaphoid tenderness bilaterally. Patient unable to opose right thumb), normal capillary refill. Absent: pedal edema, joint swelling, calf tenderness Back exam: Present: normal inspection Neurological exam: Present: alert, oriented X3, CN II-XII intact Psychiatric exam: Present: normal affect, normal mood Skin exam: Present: warm, dry, intact, normal color. Absent: rash Course Vital Signs 06/29/21 06/29/21 12:26 16:21 Temperature 97.4 F L 98.0 F Pulse Rate 96 70 Respiratory 18 17 Rate Blood Pressure 126/71 122/78 O2 Sat by Pulse 97 98 Oximetry Procedures - Orthopedic Splinting/Casting Injury #1 Side: right Upper Extremity Injury Location: wrist, hand Upper Extremity Immobilizer: thumb spica, Miki wrap, synthetic pre-padded splint Medical Decision Making - Medical Decision Making Upon arrival patient placed in room 16. She is given Tylenol for pain. X-rays are performed bilateral wrists and hands which failed to demonstrate any acute fracture. CT of the head and cervical spine is also performed which demonstrates no acute and cranial process. Patient is placed in a thumb spica splint due to her limited range of motion. Instructed to follow-up with orthopedics for further evaluation. May need further imaging studies if pain persists. She is given a Tylenol 3 starter pack to take for severe pain. Otherwise patient is to alternate taking regular Tylenol and Motrin. Do not exceed 3 g of Tylenol a day. Return to the emergency room for any new or worsening symptoms. Patient agreed the treatment plan was discharged home in stable condition Disposition Clinical Impression: Fall, Bilateral wrist pain, Pain of right thumb, Concussion without loss of consciousness Disposition: HOME SELF-CARE Condition: Stable Instructions (If sedation given, give patient instructions): Finger Sprain (ED) Additional Instructions: Please wear the splint if you are continuing to have pain. You may need to have repeat imaging including x-rays or an MRI if your pain persists. Alternate taking Motrin and Tylenol at home every 4 hours for pain control (do not exceed 3000 mg of Tylenol in 24 hours). [facility]'ll up [facility]. Return to the emergency room for any new or worsening symptoms Is patient prescribed a controlled substance at d/c from ED?: No Referrals: Cayla Ordonez MD [Primary Care Provider] - 1-2 days Dimas Becker MD [STAFF PHYSICIAN] - 1-2 days Time of Disposition: 16:07
[2021-06-29 16:22] VITALS: BP 122/78; PULSE 70; RESP 17; TEMP 98
== END 2021-06-29 16:22 | disposition home or self-care (01) ==
LOC: EC 12:08
DX: S06.0X0A Concussion without loss of consciousness, initial encounter (principal); S60.221A Contusion of right hand, initial encounter; M25.532 Pain in left wrist; J45.909 Unspecified asthma, uncomplicated; Z91.013 Allergy to seafood; Z88.2 Allergy status to sulfonamides; Z91.012 Allergy to eggs; W10.9XXA Fall (on) (from) unspecified stairs and steps, initial encounter; Y92.009 Unspecified place in unspecified non-institutional (private) residence as the place of occurrence of the external cause
CPT/HCPCS: 29125; 70450; 72125; 99284

== ENCOUNTER → 2023-07-10 | Outpatient (CLI) | payer OTHER ==
[2023-07-11 02:12] LABS: Basophils # (A) 0.04 X 10*3/uL (0.00-0.10); Basophils % (A) 0.7 %; Eosinophils # (A) 0.35 X 10*3/uL (0.04-0.35); Eosinophils % (A) 6.3 %; HCT 38.1 % (37.2-46.3); HGB 12.7 g/dL (12.0-15.0); Immature Grans, Automated 0 %; Lymphocytes # (A) 2.34 X 10*3/uL (0.90-5.00); Lymphocytes % (A) 42.3 %; MCH 29.2 pg (27.0-32.0); MCHC 33.3 g/dL (32.0-37.0); MCV 87.6 FL (80.0-97.0); Mean Platelet Volume 11.3 FL (9.5-12.2); Monocytes % (A) 5.4 %; NRBC Per 100 WBC 0 X 10*3/uL (0.00-0.01); Neutrophils % (A) 45.3 %; Platelet Count 162 X 10*3/uL (140-440); RBC 4.35 X 10*6/uL (4.10-5.20); RDW 12.9 % (11.5-14.5); WBC 5.53 X 10*3/uL (4.50-10.00)
[2023-07-11 02:39] LABS: Erythrocyte Sedimentation Rate 18 mm/Hr (0-30)
[2023-07-11 02:49] LABS: ALT 18 U/L (8-44); AST 17 U/L (13-35); Albumin 4.2 g/dL (3.8-4.9); Albumin/Globulin Ratio 1.68 Ratio (1.60-3.17); Alkaline Phosphatase 105 U/L (41-126); BUN/Creat Ratio 14.62 Ratio (12.00-20.00); Blood Urea Nitrogen 11.7 mg/dL (9.0-27.0); C Reactive Protein <0.30 mg/dL (0.00-0.80); Calcium 8.6 mg/dL (8.7-10.3); Carbon Dioxide 24.4 mmol/L (21.6-31.8); Chloride 105 mmol/L (96-109); Globulin 2.5 g/dL (1.6-3.3); Glucose 84 mg/dL (70-110); Potassium 3.8 mmol/L (3.5-5.5); Sodium 141 mmol/L (135-145); Total Bilirubin 0.3 mg/dL (0.3-1.2); Total Protein 6.7 g/dL (6.2-8.2)
== END | disposition home or self-care (01) ==
LOC: LABWHC1 15:04
PROVIDERS: ATTEND Internal Medicine Gastroenterology
DX: R19.4 Change in bowel habit (principal)
CPT/HCPCS: 36415; 80053; 83516; 85025; 85652; 86140

== ENCOUNTER 2023-07-14 06:49 | Day surgery (SDC) | payer OTHER ==
[2023-07-13 11:14] VITALS: BMI 29.0
[2023-07-14] MEDS ORDERED: LACTATED RINGERS 1,000 ML IV SCH (06:54)
[2023-07-14] MEDS ORDERED: LACTATED RINGERS 1,000 ML IV ONE ×2 (07:09)
[2023-07-14 07:19] LABS: Glucose,Whole Blood 104 mg/dL (70-110)
[2023-07-14] MEDS ORDERED: LIDOCAINE 1% INJ 10MG/ML (20 ML MDV) ONE (07:24)
[2023-07-14] MEDS ORDERED: PROPOFOL 10 MG/ML 20 ML VIAL IV ONE (07:24)
[2023-07-14 07:25] VITALS: TEMP 98
--- NOTE | 2023-07-14 07:58 | P.PCN ---
Date of Procedure: 07/14/23 Procedure(s) Performed: Brief history: Patient is a pleasant 58-year-old white female scheduled for an elective upper endoscopy as well as colonoscopy as a part of evaluation of chronic epigastric pain and change in bowel habits of several years duration Procedure performed: Esophagogastroduodenoscopy with biopsy Colonoscopy with snare polypectomy and Endo Clip placement. Preoperative diagnosis: Chronic epigastric pain Change in bowel habits Anesthesia: MAC Procedure: After informed consent was obtained from the patient was brought into the endoscopy unit and IV sedation was administered by anesthesia under continuous monitoring. Initially upper endoscopy was done. The Olympus GF 160 video endoscope was inserted inserted into the mouth and esophagus intubated without any difficulty and was gradually advanced into the stomach and duodenum and carefully examined. The bulb and second part of the duodenum appeared normal. Biopsies were done from the duodenum to rule out celiac disease. The scope was then withdrawn into the stomach adequately insufflated with air and upon careful examination the antrum had mild gastritis and biopsies were done from this area. Mucosa of the body, cardia and fundus appeared normal. The scope was then withdrawn into the esophagus. The GE junction was located at 40 cm to the incisors. It appeared regular with no erythema erosions or ulcerations. Rest of the esophagus appeared normal. Patient tolerated the procedure well. At this time the patient continued to remain sedation. Initial digital rectal examination was normal. Olympus CF 160 video colonoscope was then inserted into the rectum and gradually advanced to the cecum without any difficulty. Careful examination was performed as the scope was gradually being withdrawn. The prep was excellent. The cecum, appeared normal. Ascending colon there was a 3 cm broad-based polyp that was removed by piecemeal snare polypectomy and almost complete polypectomy was accomplished. Following polypectomy Endo Clip was placed to prevent post-polypectomy bleed. Rest of the ascending colon, transverse colon, descending colon, sigmoid colon and rectum appeared normal. Retroflexion was performed in the rectum and no lesions were noted. Scattered sigmoid diverticulosis. Patient tolerated the procedure well. Impression: 1. Upper endoscopy revealed mild antral gastritis but no evidence of esophagitis or peptic ulcer 2. Colonoscopy revealed a 3 cm broad-based ascending colon polyp status post piecemeal snare polypectomy followed by Endo Clip placement, and almost complete polypectomy accomplished. Scattered sigmoid diverticulosis. Recommendations: Findings of this examination were discussed with the patient as well as her family. She was advised to follow with the biopsy results. She'll be seen in office in 2-3 weeks and based the biopsy results will plan a repeat colonoscopy in 6 months to ensure complete polypectomy
[2023-07-14 08:13] VITALS: RESP 16
[2023-07-14 09:02] VITALS: BP 126/79; PULSE 52
== END 2023-07-14 09:06 | disposition home or self-care (01) ==
LOC: ORWHC2ENDO 06:49
PROVIDERS: ATTEND Internal Medicine Gastroenterology
DX: K29.50 Unspecified chronic gastritis without bleeding (principal); D12.2 Benign neoplasm of ascending colon; G89.28 Other chronic postprocedural pain; R19.4 Change in bowel habit; K57.30 Diverticulosis of large intestine without perforation or abscess without bleeding; J45.909 Unspecified asthma, uncomplicated; G43.909 Migraine, unspecified, not intractable, without status migrainosus; E16.2 Hypoglycemia, unspecified; K58.9 Irritable bowel syndrome, unspecified; M79.7 Fibromyalgia; M19.90 Unspecified osteoarthritis, unspecified site; Z88.2 Allergy status to sulfonamides; Z91.012 Allergy to eggs; Z91.013 Allergy to seafood; Z86.72 Personal history of thrombophlebitis; Z87.891 Personal history of nicotine dependence; Z90.710 Acquired absence of both cervix and uterus
CPT/HCPCS: 88305; 45382; 45385; 43239; J2001; J2704

== ENCOUNTER 2023-09-08 09:22 | Day surgery (SDC) | payer OTHER ==
[2023-09-04 09:35] VITALS: BMI 29.0
[~2023-09-08 09:22] MED LIST changes: -DEXAMETHASONE SOD PHOSPHATE 10 MG/ML 1 ML VIAL IV ONE; +LACTATED RINGERS 1,000 ML IV SCH; +LIDOCAINE 1% (10MG/ML) FOR IV START INTRADERMA PRN; -LIDOCAINE 1% 20 ML VIAL (10MG/ML) FOR IV START INTRADERMA PRN; -MIDAZOLAM 2 MG/2 ML VIAL IV PRN; -ONDANSETRON ODT 4 MG TAB PO ONE; -SCOPOLAMINE 1.5MG/72HR PATCH TRANSDERM ONE; -ceFAZolin IN SWFI 2 GM/20 ML SYRINGE IVP ONE; -fentaNYL (PF) 50 MCG/ML 2 ML AMP IV PRN
[2023-09-08] MEDS ORDERED: LACTATED RINGERS 1,000 ML IV ONE (09:38)
[2023-09-08 09:54] LABS: Glucose,Whole Blood 112 mg/dL (70-110)
[2023-09-08 10:16] VITALS: TEMP 97.6
[2023-09-08] MEDS ORDERED: PROPOFOL 10 MG/ML 20 ML VIAL IV ONE (10:17)
--- NOTE | 2023-09-08 10:38 | P.PCN ---
Date of Procedure: 09/08/23 Procedure(s) Performed: BRIEF HISTORY: Patient is a to 8-year-old pleasant white female scheduled for an elective colonoscopy as a part of fiber large ascending colon polyp that was noted on colonoscopy in July 2023. PROCEDURE PERFORMED: Colonoscopy. PREOPERATIVE DIAGNOSIS: Follow-up large ascending colon polyp. IV sedation per Anesthesia. PROCEDURE: After informed consent was obtained, the patient, was brought into the endoscopy unit. IV sedation was administered by Anesthesia under continuous monitoring. Digital rectal examination was normal. Initially the Olympus CF-160 flexible video colonoscope was then inserted in the rectum, gradually advanced into the cecum without any difficulty. Careful examination was performed as the scope was gradually being withdrawn. Ileocecal valve and the appendiceal orifice were visualized and appeared normal. Prep was excellent. Mucosa of the cecum, appeared normal. In the ascending colon there is no residual polyp identified at the site of previous polypectomy and Endo Clip still noted. Rest of the ascending colon, transverse colon, descending colon, sigmoid colon, and rectum appeared normal. Scattered sigmoid diverticulosis Retroflexion was performed in the rectum and no lesions were seen. The patient tolerated the procedure well. IMPRESSION: No residual ascending colon polyp noted Scattered sigmoid diverticulosis Recommendations. Findings of this examination were discussed with the patient as well as a family. She was advised to have a repeat colonoscopy in 3 years as a part of follow-up of colon polyps
[2023-09-08 11:12] VITALS: BP 112/62; PULSE 56
[2023-09-08 11:13] VITALS: RESP 18
== END 2023-09-08 11:29 | disposition home or self-care (01) ==
LOC: ORWHC2ENDO 09:22
PROVIDERS: ATTEND Internal Medicine Gastroenterology
DX: K57.30 Diverticulosis of large intestine without perforation or abscess without bleeding (principal); J45.909 Unspecified asthma, uncomplicated; G40.909 Epilepsy, unspecified, not intractable, without status epilepticus; M79.7 Fibromyalgia; G43.909 Migraine, unspecified, not intractable, without status migrainosus; Z86.73 Personal history of transient ischemic attack (TIA), and cerebral infarction without residual deficits; Z87.891 Personal history of nicotine dependence; Z88.2 Allergy status to sulfonamides; Z91.013 Allergy to seafood; Z91.012 Allergy to eggs; Z79.899 Other long term (current) drug therapy
CPT/HCPCS: 45378; J2704

== ENCOUNTER 2024-10-08 14:30 | Emergency (ER) | payer OTHER ==
[2024-10-08 14:37] VITALS: BP 134/76; PULSE 67; RESP 17; TEMP 97.9
--- NOTE | 2024-10-08 15:23 | ED ---
Extremity Problem HPI - General Chief complaint: Extremity Problem,Nontraumatic Stated complaint: left arm tightness hands turning blue Time Seen by Provider: 10/08/24 14:46 Source: patient, RN notes reviewed Mode of arrival: ambulatory Limitations: no limitations - History of Present Illness Initial comments: This is a 59-year-old female who presents to the emergency department for skin discoloration to her hands. States that she does get problems with blood flow and earlier today she developed cramping in her left arm and noticed that both of her hands seemed to be turning blue. She does not have any pain in her hands. States that they were cold when this happened. Since coming here states that she ran them under warm water and the coloration has started to improve. - Related Data Home Medications Medication Instructions Recorded Confirmed Albuterol Sulfate [Proair Hfa] 2 puff INHALATION RT-Q6H PRN 06/29/21 09/04/23 Linaclotide [Linzess] 72 mcg PO DAILY 07/13/23 09/04/23 Meloxicam [Mobic] 7.5 mg PO HS 07/13/23 09/04/23 buPROPion HCL [Wellbutrin XL] 150 mg PO DAILY 07/13/23 09/04/23 Allergies Allergy/AdvReac Type Severity Reaction Status Date / Time shellfish derived [Crab] Allergy Severe Anaphylaxis Verified 10/08/24 14:37 Sulfa (Sulfonamide Allergy Unknown Rash/Hives Verified 10/08/24 14:37 Antibiotics) egg AdvReac Rash/Hives Verified 10/08/24 14:37 Review of Systems ROS Statement: Those systems with pertinent positive or pertinent negative responses have been documented in the HPI. ROS Other: All systems not noted in ROS Statement are negative. 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 HYPOGLYCEMIA, HX OF I.T.P., VERTIGO, ALLERGIES History of Any Multi-Drug Resistant Organisms: None Reported Past Surgical History: Hysterectomy, Uterine Ablation Additional Past Surgical History / Comment(s): OVARIAN CYSTS REMOVED, colonoscopy Past Anesthesia/Blood Transfusion Reactions: Motion Sickness, Postoperative Nausea & Vomiting (PONV) Additional Past Anesthesia/Blood Transfusion Reaction / Comment(s): no blood transfusion Past Psychological History: No Psychological Hx Reported Smoking Status: Never smoker - Past Family History Mother Family Medical History: No Reported History General Exam Limitations: no limitations General appearance: alert, in no apparent distress Head exam: Present: atraumatic, normocephalic, normal inspection Respiratory exam: Present: normal lung sounds bilaterally. Absent: respiratory distress, wheezes, rales, rhonchi, stridor Cardiovascular Exam: Present: regular rate, normal rhythm, normal heart sounds. Absent: systolic murmur, diastolic murmur, rubs, gallop, clicks Extremities exam: Present: other (Mild blue/dusky discoloration to the left hand. 2+ radial pulses. Capillary refill less than 1 second.) Neurological exam: Present: alert, oriented X3, CN II-XII intact Psychiatric exam: Present: normal affect, normal mood Course Vital Signs 10/08/24 14:31 Temperature 97.9 F Pulse Rate 67 Respiratory 17 Rate Blood Pressure 134/76 O2 Sat by Pulse 100 Oximetry Medical Decision Making - Medical Decision Making This is a 59-year-old female who presents to the emergency department for discoloration to her hands. Was pt. sent in by a medical professional or institution? @ -No Did you speak to anyone other than the patient for history? @ -No Did you review nursing and triage notes? @ -Yes, and I agree, it is accurate with regards to the patient's symptoms. Were old charts reviewed? @ -No Differential Diagnosis? @ -Raynaud's, acrocyanosis, chilblains, this is not meant to be an all- inclusive list. EKG interpreted by me (3pts min.)? @ -Not obtained X-rays interpreted by me (1pt min.)? @ -Not obtained CT interpreted by me (1pt min.)? @ -Not obtained U/S interpreted by me (1pt. min.)? @ -Not obtained What testing was considered but not performed? (CT, X-rays, U/S, labs)? Why? @ -None What meds were considered but not given? Why? @ -None Did you discuss the management of the patient with other professionals? @ -No Did you reconcile home meds? @ -No Was smoking cessation discussed for >3mins.? @ -No Was critical care preformed (if so, how long)? @ -No Were there social determinants of health that impacted care today? How? (Homelessness, low income, unemployed, alcoholism, drug addiction, transportation, low edu. Level, literacy, decrease access to med. care, detention, rehab)? @ -No Was there de-escalation of care discussed even if they declined? (Discuss DNR or withdrawal of care, Hospice)? @ -No What co-morbidities impacted this encounter? (DM, HTN, Smoking, COPD, CAD, Cancer, CVA, Hep., AIDS, mental health diagnosis, sleep apnea, morbid obesity)? @ -None Was patient admitted / discharged? @ -Discharged. She had some minor minor dusky discoloration to the left hand on exam. Patient states this already looks significantly improved. She had no discomfort to this area. Her radial pulses were equal and intact bilaterally and capillary refill was less than 1 second. Discussed the possibility of Raynaud's or something similar, especially given that she was exposed to the cold and improved when her hands warmed up. Advised she continue to monitor this for the meantime and follow-up with her primary care provider. Patient discharged home in stable condition. Case discussed with ED attending Dr. Charles. Return precautions reviewed in depth, the patient is instructed to return to the emergency department with any new, worsening, or concerning symptoms. Patient verbalized understanding. Undiagnosed new problem with uncertain prognosis? @ -None Drug Therapy requiring intensive monitoring for toxicity (Heparin, Nitro, Insulin, Cardizem)? @ -None Were any procedures done? @ -None Diagnosis/symptom? @ -Discoloration of skin of hand Acute, or Chronic, or Acute on Chronic? @ -Acute Uncomplicated (without systemic symptoms) or Complicated (systemic symptoms)? @ -Uncomplicated Side effects of treatment? @ -None Exacerbation, Progression, or Severe Exacerbation] @ -Not applicable Poses a threat to life or bodily function? @ -No Disposition Clinical Impression: Discoloration of skin Disposition: HOME SELF-CARE Instructions (If sedation given, give patient instructions): Raynaud Disease (ED) Additional Instructions: Return to the emergency department with any new, worsening, or concerning symptoms. Try to keep your hands warm. Follow up with your primary care provider in 1-2 days. Is patient prescribed a controlled substance at d/c from ED?: No Referrals: Kelsey Morrell, CLAIRE [REFERRING] - 1-2 days Time of Disposition: 15:22
== END 2024-10-08 15:31 | disposition home or self-care (01) ==
LOC: EC 14:30
DX: R23.8 Other skin changes (principal); Z88.2 Allergy status to sulfonamides; Z91.012 Allergy to eggs; Z91.013 Allergy to seafood
CPT/HCPCS: 99283